=== PATIENT | female | born 1950 | race Caucasian/White ===

== ENCOUNTER 2022-02-20 08:28 | Outpatient (CLI) | payer MEDICARE | END 2022-02-20 08:29 | disposition home or self-care (01) | LOC: CSHMRI 08:28 | PROVIDERS: ATTEND Nurse Practitioner Family | DX: M25.562 Pain in left knee (principal); S83.242A Other tear of medial meniscus, current injury, left knee, initial encounter; M94.262 Chondromalacia, left knee; M67.864 Other specified disorders of tendon, left knee; S76.812A Strain of other specified muscles, fascia and tendons at thigh level, left thigh, initial encounter; M71.22 Synovial cyst of popliteal space [Baker], left knee; M94.8X6 Other specified disorders of cartilage, lower leg ==